=== PATIENT | female | born 1960 | race African-American/Black ===

== ENCOUNTER 2018-03-16 10:30 | Emergency (ER) | payer OTHER ==
[~2018-03-16] VITALS: Ht 177.8 cm; Wt 82.0 kg
[2018-03-16 12:15] VITALS: BP 144/83
== END 2018-03-16 12:30 | disposition home or self-care (01) ==
LOC: ER 10:30
DX: M75.21 Bicipital tendinitis, right shoulder (principal)
CPT/HCPCS: 99282

== ENCOUNTER 2018-05-31 08:20 | Emergency (ER) | payer MEDICAID, OTHER ==
[~2018-05-31] VITALS: Ht 172.7 cm; Wt 81.0 kg
[2018-05-31] MEDS ORDERED: KETOROLAC 60MG/2ML VIAL IM ONE (09:45)
[2018-05-31 12:19] VITALS: BP 138/72
== END 2018-05-31 12:21 | disposition home or self-care (01) ==
LOC: ER 08:20
DX: S52.572A Other intraarticular fracture of lower end of left radius, initial encounter for closed fracture (principal); S52.571A Other intraarticular fracture of lower end of right radius, initial encounter for closed fracture; M79.641 Pain in right hand; R03.0 Elevated blood-pressure reading, without diagnosis of hypertension; W01.198A Fall on same level from slipping, tripping and stumbling with subsequent striking against other object, initial encounter; Y93.02 Activity, running; Y92.480 Sidewalk as the place of occurrence of the external cause
CPT/HCPCS: 29125; 73090; 73110; 73130; 96372; 99284; J1885; 29105

== ENCOUNTER 2021-05-31 08:50 | Emergency (ER) | payer OTHER ==
[~2021-05-31] VITALS: Ht 177.8 cm; Wt 84.0 kg
[2021-05-31] MEDS ORDERED: KETOROLAC 60MG/2ML VIAL IM ONE (09:30)
[2021-05-31] MEDS ORDERED: IBUP-2029 MT (10:08)
[2021-05-31] MEDS ORDERED: CYCL10TA7 MT (10:09)
[2021-05-31 10:52] VITALS: BP 145/83
== END 2021-05-31 10:53 | disposition home or self-care (01) ==
LOC: ER 09:15
DX: M25.511 Pain in right shoulder (principal); Z98.890 Other specified postprocedural states
CPT/HCPCS: 73030; 96372; 99283; J1885